=== PATIENT | male | born 1965 | race Caucasian/White ===

== ENCOUNTER 2016-11-02 23:57 | Emergency (ER) | payer SELFPAY ==
[~2016-11-02] VITALS: Ht 175.3 cm; Wt 75.6 kg
[2016-11-03 00:17] VITALS: TEMP 36.8; Ht 175.3 cm; Wt 75.6 kg
[2016-11-03] MEDS ORDERED: KETOROLAC TROMETHAMINE 60 MG/2 ML VIAL IM STA (01:12)
[2016-11-03] MEDS ORDERED: OXYC1TAB3 PO (03:12)
[2016-11-03] MEDS ORDERED: OXYCODONE IR HOME PACK PO ONE (03:15)
[2016-11-03 03:27] VITALS: BP 120/74; PULSE 74; O2SAT 98
--- NOTE | 2016-11-03 03:28 | EMERGENCY ROOM VISIT NOTE ---
History First contact with patient: : Chief Complaint: BACK PAIN Stated Complaint: SEVERE BACK,HIP PAIN,RODS IN BACK,FELL ON ICE History of Present Illness The patient is a 51 year old male who presents to the Emergency Room with complaints of low back pain after he slipped and fell on the ice this morning at 6 AM. It is now at 1 AM in the morning. Patient states he was helping his son move. He's had prior back surgery. His appointment on Saturday with his back doctor. Patient describes the pain as aching, ranging in severity currently 8 out of 10. Nothing makes it better or worse. Patient denies chest pain, dyspnea, loss of bowel or bladder control, saddle anesthesia, fever, chills, leg weakness, IV drug abuse, head injury, loss of consciousness. No other concerns per patient. Review of Systems See HPI for pertinent positives & negatives. A total of 10 systems reviewed and were otherwise negative. Past Medical/Surgical History Hypertension, back pain with surgery Social History Smoking Status: Never Smoker Drug Use: none Marital Status: Housing Status: lives with family Occupation Status: employed Current/Historical Medications Scheduled PRN Oxycodone Immediate Rel Tab (Roxicodone Ir), 1-2 TAB PO Q4H PRN for Severe Pain Physical Exam Vital Signs Date Time Temp Pulse Resp B/P Pulse Ox O2 Delivery O2 Flow Rate FiO2 11/03/16 02:12 99 20 128/86 97 Room Air 11/03/16 00:17 36.8 56 22 129/63 94 Room Air Physical Exam VITALS: Vitals are noted on the nurse's note and reviewed by myself. Vital signs stable. GENERAL: Pleasant male, in no acute distress, nondiaphoretic, well-developed well-nourished. SKIN: Capillary reflex less than 2 seconds. HEENT: Normocephalic. PERRLA. EOMI. Nares patent. Mucous membranes moist. Neck is supple without nuchal rigidity. HEART: Regular rate and rhythm without murmurs gallops or rubs. LUNGS: Clear to auscultation bilaterally without wheezes, rales or rhonchi. No retractions or accessory muscle use. ABDOMEN: Positive bowel sounds x 4. Normal tympanic percussion. Soft, nontender, without masses or organomegaly. Murdock sign negative. No guarding or rebound tenderness. MUSCULOSKELETAL: No gross musculoskeletal defects. No pedal edema. No calf tenderness. No thoracic tenderness on exam. Lumbar tenderness to exam. No step-offs. Patient can walk on toes and heels. Negative straight leg raise. NEURO: Patient was alert and oriented to person place and time. Normal sensation to light and sharp touch. Deep tendon reflexes 2+ patella bilaterally. No focal neurological deficits. Medical Decision & Procedures Medications Administered Medications (Trade) Dose Ordered Sig/Forrest Route Start Time Stop Time Status Last Admin Dose Admin Ketorolac Tromethamine (Toradol Inj) 60 mg NOW STAT IM 11/03/16 01:12 11/03/16 01:13 DC 11/03/16 01:29 60 MG Oxycodone HCl (Roxicodone Immediate Rel 5MG Home Pack) 1 homepack UD ONCE PO 11/03/16 03:15 11/03/16 03:16 DC 11/03/16 03:22 1 HOMEPACK ED Course Prior records/ancillary studies reviewed. Triage Nursing notes reviewed. The patient's history was concerning for back pain. Differential diagnosis: Etiologies such as musculoskeletal, disc herniation, fracture, aortic disease, metastatic disease, cord compression, discitis, infection, renal colic, gastrointestinal, acute exacerbation of chronic back pain, sciatica, cauda equina, as well as others were entertained. Physical findings: As above. No focal neurologic findings noted. ER treatment provided: Toradol, home pack of OxyIR On reassessment the patient felt better. Diagnostics interpreted by me: The labs revealed [] Imaging studies: CT L SPINE: Post surgical changes of L5-S1. No evidence of acute fracture or traumatic malalignment. Radiologist: Frederick Armijo MD This appears to be consistent with lumbar strain. Patient was neurovascularly and neurologically intact. Unremarkable workup as above. He is advised follow- up with his back surgeon as scheduled on Saturday or here in the ER sooner for severe pain, numbness, tingling, inability to walk, worsening signs or symptoms or as needed. The patient's physical examination and detailed history did not reveal any red flags for back pain such as those listed in the differential diagnosis. Therefore advanced diagnostics and consultations were felt to be unwarranted. By the evaluation outlined above emergent etiologies such as fracture, aortic disease, metastatic disease, infection, renal colic, gastrointestinal, cord compression, cauda equina, as well as others were deemed relatively unlikely. The pt informed about the findings as listed above. All questions were answered and pleased with the treatment. Return instructions were outlined and the patient was discharged in stable condition. Outpatient prescription management: Oxy IR 5mg 1-2 po Q4 hrs prn Referral: The patient was referred back to spine doctor and/or primary care physician for follow-up in 2 to 3 days for a recheck of the current condition. Medical Decision as above Impression Primary Impression: Strain of lumbar region Departure Information Dispostion Home / Self-Care Condition GOOD Prescriptions Oxycodone Immediate Rel Tab (ROXICODONE IR) 5 Mg Tab 1-2 TAB PO Q4H Y for Severe Pain, #15 TAB Prov: Sarah Cook ., EMEKA 11/03/16 Referrals No Doctor, Assigned (PCP) Forms HOME CARE DOCUMENTATION FORM, IMPORTANT VISIT INFORMATION Patient Instructions Back Pain - [facility], Former[facility] Additional Instructions DO NOT drive, drink alcohol, operate machinery, or perform dangerous activities today. You were given medications in the ER that can affect your ability to safely function or operate a vehicle. Oxycodone (OxyIR) 5mg: Take 1-2 pills every four hours for breakthrough pain. Avoid alcohol, operating machinery or dangerous equipment, working on ladders or roofs, DRIVING, or situations where being under the influence may be dangerous. It is recommended to use an zrww-opy-pnnmxto stool softener such as Colace, 100mg twice daily while taking this medication to avoid constipation. Ibuprofen(Motrin, Advil) may be used for fever or pain. Use 600mg every six hours as needed. Take with food. Avoid using more than 2400mg in a 24 hour period. Do not use 2400mg per day for more than three consecutive days without physician direction. Prolonged inappropriate use can lead to stomach upset or ulcers. This medication can be taken if you need to drive, work, or perform activities which may be dangerous when taking narcotic pain medication. (AND/OR) Acetaminophen(Tylenol) may be used for fever or pain. Use 1000mg every six hours as needed. Avoid using more than 3000mg in a 24 hour period. This medication can be taken if you need to drive, work, or perform activities which may be dangerous when taking narcotic pain medication. Rest and avoid heavy lifting until your symptoms resolve and then gradually return to full activity. A good rule of thumb is if it hurts your back to perform a certain activity, then it should be avoided until you are healthy again. A heating pad, warm compresses, or a hot shower may help with tight muscles and can be done several times a day as needed. Continue current medications. Return to the ER immediately for any numbness, tingling, severe pain, loss of control of your bowels or bladder, inability to walk, or as needed. Follow up with your primary care physician/orthopedics spine within 3-5 days for a recheck of your current condition. Problem Qualifiers Primary Impression: Strain of lumbar region Encounter type: initial encounter Qualified Codes: S39.012A - Strain of muscle, fascia and tendon of lower back, initial encounter
--- NOTE | 2016-11-03 06:53 | DIAGNOSTIC IMAGING REPORT ---
LUMBAR SPINE CT CT DOSE: 761.41 mGy.cm HISTORY: Trauma fall, LBP TECHNIQUE: Multiaxial CT images of the lumbar spine were performed and reformatted in the sagittal and coronal plane without the use of contrast. COMPARISON: None. FINDINGS: No fractures. No subluxation. Paraspinal soft tissues are unremarkable. Findings of stable L5-S1 laminectomy and fusion IMPRESSION: Chronic and postoperative change. No acute process. Electronically signed by: Alan Flores M.D. 11/03/2016 6:52 AM Dictated Date/Time: 11/03/2016 6:50 AM
== END 2016-11-03 03:29 | disposition home or self-care (01) ==
LOC: C.EDB 11-03 → C.EDC 11-03 03:29
DX: S39.012A Strain of muscle, fascia and tendon of lower back, initial encounter (principal); W01.0XXA Fall on same level from slipping, tripping and stumbling without subsequent striking against object, initial encounter; I10 Essential (primary) hypertension; Z98.890 Other specified postprocedural states